=== PATIENT | female | born 1965 | race Caucasian/White ===

== ENCOUNTER 2023-05-27 14:09 | Emergency (ER) | payer SELFPAY ==
[2023-05-27] VITALS (13 sets, daily range): BP systolic 117–146; BP diastolic 59–91
[~2023-05-27] VITALS: Ht 172.7 cm; Wt 84.0 kg
[~2023-05-27 14:09] MED LIST: ALL DAY ALLG10 MG PO; AMOX/K CLAV875 M1 PO; AMOXICILLIN/CL875 MG OR; AMOXICILLIN500 MG PO; AUGMENTIN875TAB PO; BACTRIM DS1 TAB PO; CELEXA10 MG PO; CETIRIZINE10 MG PO; CLONAZEP ODT1 MG PO; DIFLUCAN150 MG OR; DIFLUCAN150 MG PO; DITROPAN OR; EFFEXOR75 MG OR; FLAGYL500 MG OR; FLEXERIL10 MG PO; FLONASE NASAL50 MCG; IBUPROFEN800 MG PO; LEXAPRO10 MG PO; METRONIDAZOL0.752 VA; NEURONTIN300 MG PO; SMZ-TMP DS1 TAB PO; TRAMADOL HCL50 MG PO; TRANDATE100 MG PO; TRAZODONE100 MG PO; TRAZODONE50 MG PO; XANAX0.5 MG PO; XANAX1 MG PO; ZOFRAN ODT4 MG OR; ZOFRAN ODT4 MG PO; ZOLOFT25 MG; ZOLOFT25 MG PO; ZYRTEC-D AL1 OR
[2023-05-27 14:45] LABS: BASO% 0.6 % (0-3); EOS% 2.3 % (0-8); HEMATOCRIT 42.4 % (37.0-47.0); IMMATURE GRANULOCYTES 1.4 % (0.0-5.0); LYMPH% 34.6 % (15-41); MEAN CELL VOLUME 93.8 fL CALC (80.0-100.0); MONO% 5.7 % (2-13); NEUT# 5.01 thou/uL (2.00-7.15); NEUT% 55.4 % (42-76); RED BLOOD COUNT 4.52 mill/uL (4.20-5.60); RED CELL DISTRI WIDTH 12.9 % (11.5-15.5)
[2023-05-27 14:55] LABS: ALBUMIN 4.2 g/dL (3.2-5.0); ALKALINE PHOSPHATASE 74 u/l (38-126); ANION GAP 13 (6-22 (CALC)); BUN 10 mg/dL (7-17); BUN/CREATININE RATIO 14 (12-20 (CALC)); CARBON DIOXIDE 22 mmol/l (22-30); CHLORIDE 106 mmol/l (95-108); CREATININE 0.7 mg/dL (0.5-1.0); GFR FOR AFR.AMER. > 60 ML/MIN (>=60 (CALC)); GFR OTHER RACES > 60 ML/MIN (>=60 (CALC)); POTASSIUM 3.9 mmol/l (3.5-5.1); SGOT/AST 28 u/l (14-36); SODIUM 137 mmol/l (137-146); TOTAL PROTEIN 7.3 g/dL (6.3-8.2)
[2023-05-27 14:56] LABS: BILIRUBIN, TOTAL 0.3 mg/dL (0.02-1.3)
[2023-05-27 14:59] LABS: PROTHROMBIN TIME 9.8 SECONDS (9.0-12.5)
== END 2023-05-27 18:08 | disposition home or self-care (01) | DRG 103 ==
LOC: ED 14:09
PROVIDERS: Family Medicine
DX: G43.909 Migraine, unspecified, not intractable, without status migrainosus (principal); M35.00 Sjogren syndrome, unspecified; M06.9 Rheumatoid arthritis, unspecified; F17.200 Nicotine dependence, unspecified, uncomplicated
CPT/HCPCS: J3475; Q9967